=== PATIENT | female | born 1990 | race Caucasian/White ===

== ENCOUNTER 2016-11-16 10:02 | Emergency (ER) | payer SELFPAY ==
[~2016-11-16] VITALS: Ht 152.4 cm; Wt 81.0 kg
[~2016-11-16 10:02] MED LIST: PREN-385 PO
[2016-11-16 10:10] VITALS: BP 131/58
--- NOTE | 2016-11-16 10:22 | NUR ---
PT AMBULATED TO BED 8 WITH .
--- NOTE | 2016-11-16 10:23 | NUR ---
26F BIB C/O VAGINAL PAIN RADIATES TO RIGHT BACK X 1 WEEK. PT STATES HAS N/V TODAY . SKIN IS PINK/WARM/DRY; AAOX4 WITH EVEN AND STEADY GAIT; LUNGS CLEAR BL; HR EVEN AND REGULAR; PT DENIES ANY FEVER, CP, SOB, OR COUGH AT THIS TIME; PATIENT STATES PAIN OF 7/10 AT THIS TIME; PATIENT POSITIONED FOR COMFORT; HOB ELEVATED; BEDRAILS UP X2; BED DOWN. ER MD MADE AWARE OF PT STATUS.
--- NOTE | 2016-11-16 10:30 | NUR ---
Patient being evaluated by physician at bedside.
[2016-11-16] MEDS ORDERED: ACETAMINOPHEN EXTRA STRENGTH 500 MG TAB PO ONE (10:50)
[2016-11-16 11:35] VITALS: BP 138/81
--- NOTE | 2016-11-16 11:35 | NUR ---
Patient discharged with v/s stable. Written and verbal after care instructions given and explained. Patient alert, oriented and verbalized understanding of instructions. Ambulatory with steady gait. All questions addressed prior to discharge. ID band removed. Patient advised to follow up with PMD. Rx of MOTRIN & CIPRO given. Patient educated on indication of medication including possible reaction and side effects. Opportunity to ask questions provided and answered.
== END 2016-11-16 11:35 | disposition home or self-care (01) ==
LOC: MED 10:02
DX: N12 Tubulo-interstitial nephritis, not specified as acute or chronic (principal); I10 Essential (primary) hypertension; Z79.899 Other long term (current) drug therapy
CPT/HCPCS: 81002; 81025; 99283

== ENCOUNTER 2023-11-02 12:48 | Emergency (ER) | payer SELFPAY ==
[~2023-11-02] VITALS: Ht 165.1 cm; Wt 89.5 kg
[2023-11-02 13:05] VITALS: BP 151/105; PULSE 72; RESP 16; TEMP 97.4; O2SAT 100
[2023-11-02 15:06] VITALS: BP 151/105; PULSE 72; RESP 16; TEMP 97.4; O2SAT 100
== END 2023-11-02 15:06 | disposition home or self-care (01) ==
LOC: MED 12:48
DX: S20.212A Contusion of left front wall of thorax, initial encounter (principal); I10 Essential (primary) hypertension; Z79.899 Other long term (current) drug therapy; W18.2XXA Fall in (into) shower or empty bathtub, initial encounter; Y93.E1 Activity, personal bathing and showering; Y92.098 Other place in other non-institutional residence as the place of occurrence of the external cause; Y99.8 Other external cause status
CPT/HCPCS: 71101; 81025; 99283